=== PATIENT | female | born 1975 | race Two or more races ===

== ENCOUNTER 2018-12-13 21:39 | Emergency (ER) | payer OTHER ==
[~2018-12-13] VITALS: Ht 165.1 cm; Wt 127.0 kg
[2018-12-14] MEDS ORDERED: HYDROcodone-ACET 10/325MG TAB PO ONE (00:45)
[2018-12-14] MEDS ORDERED: BACLOFEN 10 MG TAB PO ONE (00:45)
[2018-12-14 01:23] VITALS: BP 130/77
== END 2018-12-14 02:24 | disposition home or self-care (01) ==
LOC: ER 21:45
DX: S16.1XXA Strain of muscle, fascia and tendon at neck level, initial encounter (principal); W18.09XA Striking against other object with subsequent fall, initial encounter; Y93.89 Activity, other specified; Y92.89 Other specified places as the place of occurrence of the external cause; Y99.8 Other external cause status
CPT/HCPCS: 70450; 72125